=== PATIENT | male | born 2005 | race Caucasian/White ===

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

== ENCOUNTER 2024-08-27 11:41 | Outpatient (CLI) | payer BC | END 2024-08-27 11:42 | disposition home or self-care (01) | LOC: CSHULT 11:41 | PROVIDERS: ATTEND Internal Medicine | DX: K50.90 Crohn's disease, unspecified, without complications (principal); R79.89 Other specified abnormal findings of blood chemistry | CPT/HCPCS: 76700 ==